=== PATIENT | female | born 1945 | race Caucasian/White ===

== ENCOUNTER 2017-12-30 18:00 | Emergency (ER) | payer OTHER ==
[2017-12-30] MEDS ORDERED: NS(*) 0.9% 1000 ML BAG 1,000 ML IV ONE (18:54)
--- NOTE | 2017-12-30 18:54 | ER Report ---
History and Physical Time Seen By MD: 18:54 HPI/ROS CHIEF COMPLAINT: Syncope, weakness HISTORY OF PRESENT ILLNESS: 72-year-old female presents with severe fatigue and weakness. Patient is grossly pale. She has a history of anemia. She has undergone triple bypass in August. She is from [facility] is here [facility]. Patient denies chest pain, but notes severe shortness of breath and fatigue. REVIEW OF SYSTEMS: Respiratory: As above Cardiovascular: No chest pain, no palpitations. Gastrointestinal: No vomiting, no abdominal pain. Musculoskeletal: No back pain. Allergies: Coded Allergies: No Known Drug Allergies (Unverified , 12/30/17) Home Meds Reported Medications Ferrous Sulfate (FERROUS SULFATE) 325 Mg Tablet, 325 MG PO BID 12/30/17 Levothyroxine Sodium (SYNTHROID) 137 Mcg Tablet, 137 MCG PO QDAY 12/30/17 Atorvastatin Calcium (LIPITOR) 40 Mg Tablet, 80 TAB PO QDAY, TAB 12/30/17 Metoprolol Succinate (METOPROLOL SUCCINATE) 25 Mg Tab.er.24h, 12.5 TAB PO 1-2XD , TAB 12/30/17 Insulin Glulisine (APIDRA) 100 Unit/1 Ml Vial, 100 UNIT SQ, VIAL 12/30/17 Aspirin (ASPIRIN) 325 Mg Tablet, 325 MG PO Q4-6H, TAB 12/30/17 Insulin Glargine (LANTUS) 100 Unit/Ml Soln, 18 UNIT SUBQ QDAY, ML 12/30/17 Reviewed Nurses Notes: Yes Old Medical Records Reviewed: Yes Constitutional Vital Sign - Last 24 Hours 12/30/17 12/30/17 12/30/17 12/30/17 18:47 18:53 19:00 19:15 Temp 98.7 Pulse 95 91 Resp 18 11 B/P (MAP) 118/71 (87) 118/71 126/79 (95) 125/75 (92) Pulse Ox 93 97 O2 Delivery Room Air 12/30/17 12/30/17 12/30/17 12/30/17 19:30 19:35 19:37 19:45 Pulse 94 Resp 16 7 B/P (MAP) 122/72 (89) 118/69 (85) Pulse Ox 97 98 O2 Flow Rate 2.0 12/30/17 12/30/17 12/30/17 12/30/17 19:50 20:00 20:05 20:15 Pulse 90 89 Resp 10 9 B/P (MAP) 118/65 (82) 112/65 (81) Pulse Ox 97 98 12/30/17 12/30/17 12/30/17 12/30/17 20:20 20:30 20:35 20:45 Pulse 93 88 Resp 17 16 B/P (MAP) 126/71 (89) 123/70 (87) Pulse Ox 96 96 12/30/17 12/30/17 12/30/17 12/30/17 20:50 21:00 21:05 21:10 Pulse 89 90 92 Resp 14 16 14 B/P (MAP) 136/80 (98) Pulse Ox 98 96 99 12/30/17 12/30/17 12/30/17 12/30/17 21:15 21:25 21:30 21:40 Pulse 90 86 Resp 7 9 B/P (MAP) 138/76 (96) 136/74 (94) Pulse Ox 95 97 12/30/17 12/30/17 12/30/17 12/30/17 21:45 21:55 22:00 22:10 Pulse 92 93 Resp 19 8 B/P (MAP) ???/??? (1665) ???/??? (1665) Pulse Ox 97 98 12/30/17 12/30/17 12/30/17 22:15 22:25 22:40 Pulse 97 94 Resp 21 11 B/P (MAP) ???/??? (1665) Pulse Ox 100 90 Physical Exam General Appearance: The patient is alert, has no immediate need for airway protection and no current signs of toxicity., Pale appearing, skin warm and dry , vital signs stable, alert and oriented HEENT: Pupils equal and round no injection. Conjunctiva pale, Oropharynx with moist mucous. Membranes, Respiratory: Chest is non tender, lungs are clear to auscultation. Cardiac: regular rate and rhythm Gastrointestinal: Abdomen is soft and non tender, no masses, bowel sounds normal. Musculoskeletal: Neck: Neck is supple and non tender. Extremities have full range of motion and are non tender. Skin: No rashes or lesions. DIFFERENTIAL DIAGNOSIS: After history and physical exam differential diagnosis was considered for syncope including but not limited to vasovagal syncope, arrhythmia, dehydration, and blood loss. Additionally,shortness of breath including but not limited to pulmonary infectious process, COPD, asthma, pulmonary embolus and congestive heart failure. Medical Decision Making Data Points Result Diagram: 12/30/17 19012/30/171900 Laboratory Hematology Test 12/30/17 19:01 12/30/17 21:54 12/30/17 22:10 Red Blood Count 3.57 M/uL (4.17-5.56) Mean Corpuscular Volume 83.8 fL (80.0-96.0) Mean Corpuscular Hemoglobin 29.1 pg (26.0-33.0) Mean Corpuscular Hemoglobin Concent 34.7 g/dL (32.0-36.0) Red Cell Distribution Width 15.0 % (11.5-14.5) Mean Platelet Volume 8.5 fL (7.2-11.1) Neutrophils (%) (Auto) 56.2 % (39.4-72.5) Lymphocytes (%) (Auto) 31.7 % (17.6-49.6) Monocytes (%) (Auto) 8.8 % (4.1-12.4) Eosinophils (%) (Auto) 2.3 % (0.4-6.7) Basophils (%) (Auto) 1.0 % (0.3-1.4) Nucleated RBC Relative Count (auto) 0.0 /100WBC Neutrophils # (Auto) 3.7 K/uL (2.0-7.4) Lymphocytes # (Auto) 2.1 K/uL (1.3-3.6) Monocytes # (Auto) 0.6 K/uL (0.3-1.0) Eosinophils # (Auto) 0.2 K/uL (0.0-0.5) Basophils # (Auto) 0.1 K/uL (0.0-0.1) Nucleated RBC Absolute Count (auto) 0.00 K/uL Prothrombin Time 13.1 seconds (12.0-14.4) Prothromb Time International Ratio 0.99 Activated Partial Thromboplast Time 27 seconds (23-35) Sodium Level 134 mmol/L (137-145) Potassium Level 3.2 mmol/L (3.5-5.0) Chloride Level 103 mmol/L (98-107) Carbon Dioxide Level 16 mmol/L (22-31) Blood Urea Nitrogen 33 mg/dl (7-18) Creatinine 1.80 mg/dl (0.52-1.04) Glomerular Filtration Rate Calc 27.7 Random Glucose 160 mg/dl (75-110) Lactate 2.1 mmol/L (0.7-2.1) Calcium Level 7.1 mg/dl (8.4-10.2) Total Bilirubin 1.5 mg/dl (0.2-1.3) Aspartate Amino Transf (AST/SGOT) 45 U/L (0-35) Alanine Aminotransferase (ALT/SGPT) 48 U/L (0-56) Alkaline Phosphatase 120 U/L (0-126) C-Reactive Protein < 0.5 mg/dl (<1.0) Total Protein 6.3 g/dl (6.3-8.2) Albumin 3.4 g/dl (3.5-5.0) Amylase Level 82 U/L (0-110) Lipase 150 U/L (23-300) Acetone, Qualitative Negative Urine Color Yellow Urine Clarity Clear Urine pH 5.0 pH (4.8-9.5) Urine Specific [place] 1.011 Urine Protein 30 mg/dL (NEGATIVE) Urine Glucose (UA) 500 mg/dL (NEGATIVE) Urine Ketones Trace mg/dL (NEGATIVE) Urine Blood Small (NEGATIVE) Urine Nitrite Negative (NEGATIVE) Urine Bilirubin Negative (NEGATIVE) Urine Urobilinogen Negative mg/dL (0.2-1.9) Urine Leukocyte Esterase Negative (NEGATIVE) Urine RBC 2 /HPF (0-2/HPF) Urine WBC 1 /HPF (0-5/HPF) Urine Squamous Epithelial Cells Many /LPF (</=FEW) Urine Bacteria Few /HPF (NONE-FEW) Urine Mucus None /HPF (NONE-FEW) Troponin I 0.050 ng/ml Chemistry Test 12/30/17 19:01 12/30/17 21:54 12/30/17 22:10 White Blood Count 6.5 k/uL (4.5-11.0) Red Blood Count 3.57 M/uL (4.17-5.56) Hemoglobin 10.4 g/dL (12.0-16.0) Hematocrit 29.9 % (34.0-47.0) Mean Corpuscular Volume 83.8 fL (80.0-96.0) Mean Corpuscular Hemoglobin 29.1 pg (26.0-33.0) Mean Corpuscular Hemoglobin Concent 34.7 g/dL (32.0-36.0) Red Cell Distribution Width 15.0 % (11.5-14.5) Platelet Count 204 K/uL (150-450) Mean Platelet Volume 8.5 fL (7.2-11.1) Neutrophils (%) (Auto) 56.2 % (39.4-72.5) Lymphocytes (%) (Auto) 31.7 % (17.6-49.6) Monocytes (%) (Auto) 8.8 % (4.1-12.4) Eosinophils (%) (Auto) 2.3 % (0.4-6.7) Basophils (%) (Auto) 1.0 % (0.3-1.4) Nucleated RBC Relative Count (auto) 0.0 /100WBC Neutrophils # (Auto) 3.7 K/uL (2.0-7.4) Lymphocytes # (Auto) 2.1 K/uL (1.3-3.6) Monocytes # (Auto) 0.6 K/uL (0.3-1.0) Eosinophils # (Auto) 0.2 K/uL (0.0-0.5) Basophils # (Auto) 0.1 K/uL (0.0-0.1) Nucleated RBC Absolute Count (auto) 0.00 K/uL Prothrombin Time 13.1 seconds (12.0-14.4) Prothromb Time International Ratio 0.99 Activated Partial Thromboplast Time 27 seconds (23-35) Glomerular Filtration Rate Calc 27.7 Lactate 2.1 mmol/L (0.7-2.1) Calcium Level 7.1 mg/dl (8.4-10.2) Total Bilirubin 1.5 mg/dl (0.2-1.3) Aspartate Amino Transf (AST/SGOT) 45 U/L (0-35) Alanine Aminotransferase (ALT/SGPT) 48 U/L (0-56) Alkaline Phosphatase 120 U/L (0-126) C-Reactive Protein < 0.5 mg/dl (<1.0) Total Protein 6.3 g/dl (6.3-8.2) Albumin 3.4 g/dl (3.5-5.0) Amylase Level 82 U/L (0-110) Lipase 150 U/L (23-300) Acetone, Qualitative Negative Urine Color Yellow Urine Clarity Clear Urine pH 5.0 pH (4.8-9.5) Urine Specific [place] 1.011 Urine Protein 30 mg/dL (NEGATIVE) Urine Glucose (UA) 500 mg/dL (NEGATIVE) Urine Ketones Trace mg/dL (NEGATIVE) Urine Blood Small (NEGATIVE) Urine Nitrite Negative (NEGATIVE) Urine Bilirubin Negative (NEGATIVE) Urine Urobilinogen Negative mg/dL (0.2-1.9) Urine Leukocyte Esterase Negative (NEGATIVE) Urine RBC 2 /HPF (0-2/HPF) Urine WBC 1 /HPF (0-5/HPF) Urine Squamous Epithelial Cells Many /LPF (</=FEW) Urine Bacteria Few /HPF (NONE-FEW) Urine Mucus None /HPF (NONE-FEW) Troponin I 0.050 ng/ml Coagulation Test 12/30/17 19:01 Prothrombin Time 13.1 seconds Prothromb Time International Ratio 0.99 Activated Partial Thromboplast Time 27 seconds Toxicology Test 12/30/17 19:01 Acetone, Qualitative Negative Urinalysis Test 12/30/17 21:54 Urine Color Yellow Urine Clarity Clear Urine pH 5.0 pH (4.8-9.5) Urine Specific [place] 1.011 Urine Protein 30 mg/dL (NEGATIVE) Urine Glucose (UA) 500 mg/dL (NEGATIVE) Urine Ketones Trace mg/dL (NEGATIVE) Urine Blood Small (NEGATIVE) Urine Nitrite Negative (NEGATIVE) Urine Bilirubin Negative (NEGATIVE) Urine Urobilinogen Negative mg/dL (0.2-1.9) Urine Leukocyte Esterase Negative (NEGATIVE) Urine RBC 2 /HPF (0-2/HPF) Urine WBC 1 /HPF (0-5/HPF) Urine Squamous Epithelial Cells Many /LPF (</=FEW) Urine Bacteria Few /HPF (NONE-FEW) Urine Mucus None /HPF (NONE-FEW) EKG/Imaging EKG Interpretation 12 lead EK Rhythm: normal sinus rhythm [place]: normal QRS:, Old anterior Q waves ST segments: Nonspecific ST and T-wave changes, no old EKGs for comparison ED Course/Re-evaluation Clinical Indication for ER IV: Hydration, IV Access ED Course Patient was admitted to an examination room. H&P was done. The differential diagnoses was considered. Patient here [place] with recent cardiac bypass surgery 3 3-4 months ago. Patient is severely fatigued. She spent all day yesterday cleaning. Today she short of breath and fatigued. She is anemic and is on iron replacement. Patient notes no infectious symptoms. A diagnostic evaluation shows an EKG without ischemic changes. There are no old ones for comparison. Patient's troponins return indeterminant mildly elevated. Patient' s anemia appears to be stable. Patient's advised to leave altitude. She does not tolerate a hypoxic altitude. I see no indication for admission at this time. Patient advised to follow-up with her primary care doctor upon returning home. Decision to Disposition Date: Dec 30, 2017 Decision to Disposition Time: 22:44 Depart Departure Latest Vital Signs Vital Signs Date Time Temp Pulse Resp B/P (MAP) Pulse Ox O2 Delivery O2 Flow Rate FiO2 12/30/17 22:40 94 11 90 12/30/17 22:15 ???/??? (1665) 12/30/17 19:37 2.0 12/30/17 18:53 98.7 Room Air Impression: Primary Impression: Near syncope Additional Impressions: Elevated troponin I measurement Status post aorto-coronary artery bypass graft Anemia Condition: Improved Disposition: HOME OR SELF-CARE Patient Instructions: Mountain Sickness (ED), Near Syncope (ED) Additional Instructions: Your unable to tolerate the altitude with are thin air. You are advised to leave our altitude as soon as possible and return to see level. Go to the nearest ER for any worsening Follow-up with your primary care doctor upon returning home Problem Qualifiers Additional Impressions: Anemia Anemia type: iron deficiency Iron deficiency anemia type: unspecified iron deficiency Qualified Codes: D50.9 - Iron deficiency anemia, unspecified BENJIE SIMEON DO Dec 30, 2017 18:54
[2017-12-30] MEDS ORDERED: ONDANSETRON 4 MG/2 ML VIAL IVP ONE (18:55)
[2017-12-30 19:09] LABS: PLATELET COUNT, AUTOMATED 204 K/uL (150-450)
[2017-12-30] MEDS ORDERED: FERR-53 PO (19:13)
[2017-12-30] MEDS ORDERED: ASPI-757 PO (19:13)
[2017-12-30] MEDS ORDERED: LANI SUBQ (19:13)
[2017-12-30] MEDS ORDERED: INSU100V28 SQ (19:13)
[2017-12-30] MEDS ORDERED: LEVO137T22 PO (19:13)
[2017-12-30] MEDS ORDERED: ATOR40TA24 PO (19:13)
[2017-12-30] MEDS ORDERED: METO25TA23 PO (19:13)
[2017-12-30 19:20] LABS: INR 0.99
--- NOTE | 2017-12-30 20:44 | EKG ---
FACILITY: [facility] PATIENT NAME: VALENTÍN MCKEON : [id number] MR: [id number] V: [id number] EXAM DATE: ORDERING PHYSICIAN: BENJIE SIMEON TECHNOLOGIST: PATRICK Test Reason : DIZZINESS Blood Pressure : / mmHG Vent. Rate : 094 BPM Atrial Rate : 094 BPM P-R Int : 200 ms QRS Dur : 092 ms QT Int : 404 ms P-R-T Axes : 074 056 037 degrees QTc Int : 505 ms Sinus rhyth with first dgree AV block Anteroseptal infarct , age undetermined Prolonged QT interval Abnormal ECG No previous ECGs available Confirmed by DAYA RUIZ ([id number] on 12/31/2017 5:45:45 AM Referred By: Confirmed By:DAYA RUIZ
== END 2017-12-30 22:55 | disposition home or self-care (01) ==
LOC: ER 19:15
DX: R55 Syncope and collapse (principal); D50.9 Iron deficiency anemia, unspecified; R79.89 Other specified abnormal findings of blood chemistry; Z95.1 Presence of aortocoronary bypass graft
CPT/HCPCS: 36415; 81001; 82009; 82150; 83605; 83690; 84484; 85025; 85610; 85730; 86140; 93005; 96360; 99283; J7030; 82040; 82247; 82310; 82374; 82435; 82565; 82947; 84075; 84132; 84155; 84295; 84450; 84460; 84520